=== PATIENT | female | born 1975 | race Two or more races ===

== ENCOUNTER 2023-08-30 20:44 | Inpatient (IN) | payer OTHER, MEDICAID ==
[~2023-08-30] VITALS: Ht 182.9 cm; Wt 75.0 kg
[2023-08-30 21:24] VITALS: PULSE 77; RESP 20; O2SAT 100
[2023-08-30] MEDS: ONDANSETRON HCL 4 MG/2 ML VIAL IV ONE (21:36)
[2023-08-30] MEDS: SODIUM CHLORIDE 0.9% 1,000 ML IV ONE (21:37)
[2023-08-30] MEDS: HYDROmorphone HCL 2 MG/ML VL/or syr IV ONE ×4 (21:37→23:17)
[2023-08-30 21:46] LABS: Basophils # (auto) 0.1 10 ^3/uL (0-0.2); Basophils % (auto) 0.9 % (0.0-2.0); Eosinophils # (auto) 0 10 ^3/uL (0-0.8); Eosinophils % (auto) 0.1 % (0.0-7.0); Hematocrit 37.2 % (36.0-46.0); Hemoglobin 12.4 g/dL (12.2-16.2); Lymphocytes # (auto) 1.1 10 ^3/uL (0.4-5.4); Lymphocytes % (auto) 17.1 % (10.0-50.0); Mean Corpuscular Hemoglobin 29.7 pg (28.0-32.0); Mean Corpuscular Hgb Conc. 33.2 g/dL (32.0-36.0); Mean Corpuscular Volume 89.5 fL (80.0-100.0); Monocytes # (auto) 0.5 10 ^3/uL (0-1.3); Monocytes % (auto) 7.7 % (0.0-12.0); Neutrophils # (auto) 4.7 10 ^3/uL (1.6-8.6); Neutrophils % (auto) 74.2 % (37.0-80.0); Red Blood Cells 4.16 10^6/uL (4.0-5.20); Red Cell Distribution Width 13.4 % (11.8-14.3); White Blood Cell 6.3 10^3/uL (4.4-10.8)
[2023-08-30 22:08] LABS: Alanine Aminotransferase 15 U/L (7-40); Alkaline Phosphatase 23 U/L (46-116); Anion Gap 11 (5-15); Aspartate Aminotransferase 18 U/L (13-40); BUN/Creatinine Ratio 7.4 (10.0-20.0); Blood Urea Nitrogen 8 mg/dL (9-23); Calcium 9.8 mg/dL (8.5-10.1); Carbon Dioxide 22 mmol/L (20-30); Chloride 107 mmol/L (98-107); Glucose 180 mg/dL (74-106); Potassium 3.1 mmol/L (3.5-5.1); Sodium 140 mmol/L (136-145)
[2023-08-30 22:09] LABS: Albumin 4.5 g/dL (3.2-4.8); Bilirubin, Total 0.4 mg/dL (0.2-1.0); Total Protein 6.4 g/dL (5.7-8.2)
[2023-08-30] MEDS: METOCLOPRAMIDE HCL 5MG/ml INJ 2ml VIAL IV ONE (22:30)
[2023-08-30 22:40] LABS: Lipase 27 U/L (12-53)
[2023-08-30] MEDS: IOHEXOL 350 MG/ML 100ML IJ ONE (22:40)
[2023-08-30 22:41] LABS: Lactic Acid w/Reflex 2.6 mmol/L (0.4-2.0)
[2023-08-30] MEDS: cefTRIAXone 1GM/50ML D5W 50 ML IV ONE (23:37)
[2023-08-31] MEDS: metroNIDAZOLE 500MG/100ML 100 ML IV ONE (00:01)
[2023-08-31 00:29] LABS: Urine Bacteria None Seen /hpf (None Seen)
[2023-08-31 00:38] LABS: Urine Blood TRACE /uL (Negative); Urine Clarity Clear (Clear); Urine Color Light-Yellow (Yellow); Urine Protein, UAD TRACE (Negative); Urine Urobilinogen Normal (Negative); Urine WBC 8 /hpf (0 - 5)
[2023-08-31] MEDS: METOCLOPRAMIDE HCL 5MG/ml INJ 2ml VIAL IV ONE (00:42)
[2023-08-31] MEDS: HYDROmorphone HCL 2 MG/ML VL/or syr IV ONE (04:59)
[2023-08-31 07:40] VITALS: PULSE 89; RESP 16; O2SAT 99
[2023-08-31] MEDS ORDERED: ACETAMINOPHEN 325 MG TAB PO PRN (09:30)
[2023-08-31] MEDS ORDERED: SODIUM CHLORIDE 0.9% 1,000 ML IV SCH (09:30)
[2023-08-31] MEDS ORDERED: MORPHINE SULFATE INJ 2 MG/ml SYRG IV PRN (09:30)
[2023-08-31] MEDS: POTASSIUM EFFERVESENT TAB 25 MEQ PO ONE (09:45)
[2023-08-31] MEDS: ENOXAPARIN SOD 40 MG/0.4 ML SYRINGE SC SCH (10:00)
[2023-08-31] MEDS ORDERED: LACTULOSE 20Gm/30ML SOLN PO SCH (10:00)
[2023-08-31] MEDS ORDERED: ENOXAPARIN SOD 40 MG/0.4 ML SYRINGE SC SCH (10:00)
[2023-08-31] MEDS ORDERED: FENO160T PO (10:02)
[2023-08-31] MEDS ORDERED: BUSP10TA31 PO (10:02)
[2023-08-31] MEDS ORDERED: GAB100C PO (10:02)
[2023-08-31] MEDS ORDERED: LISI20TA56 PO (10:02)
[2023-08-31] MEDS ORDERED: LEVO75TA6 PO (10:02)
[2023-08-31] MEDS ORDERED: QUET1TAB11 PO (10:02)
[2023-08-31] MEDS ORDERED: HYDR-4795 PO (10:02)
[2023-08-31] MEDS: GASTROGRAFIN 120 ML SOL ONE (10:02)
[2023-08-31] MEDS ORDERED: VENL37.588 PO (10:02)
[2023-08-31] MEDS: PANTOPRAZOLE 40 MG/10 ML VIAL INJ IV ONE (10:06)
[2023-08-31] MEDS: DOCUSATE SOD 100 MG CAP PO ONE (10:06)
[2023-08-31] MEDS: SODIUM CHLORIDE 0.9% 1,000 ML IV SCH (10:11)
[2023-08-31] MEDS: DOCUSATE SOD 100 MG CAP PO SCH (10:11)
[2023-08-31] MEDS: LACTULOSE 20Gm/30ML SOLN PO ONE (10:11)
[2023-08-31] MEDS: PANTOPRAZOLE 40 MG/10 ML VIAL INJ IV SCH (10:18)
[2023-08-31] MEDS: ONDANSETRON HCL 4 MG/2 ML VIAL IV PRN (10:42)
[2023-08-31] MEDS: metroNIDAZOLE 500MG/100ML 100 ML IV SCH (14:09)
[2023-08-31] MEDS: GABAPENTIN 100 MG CAP PO SCH (14:09)
[2023-08-31] MEDS: busPIRone HCL 10 MG TAB PO SCH (14:09)
[2023-08-31] MEDS: MORPHINE SULFATE INJ 2 MG/ml SYRG IV PRN (15:42)
[2023-08-31 16:00] VITALS: BP 171/94; PULSE 89; RESP 16; O2SAT 100
[2023-08-31 17:00] VITALS: BP 171/94; PULSE 89; RESP 14; TEMP 98.6; O2SAT 99
[2023-08-31 17:45] VITALS: BP 143/86; PULSE 86; RESP 16; O2SAT 99
[2023-08-31 20:00] VITALS: PULSE 114; PULSE 93; RESP 19; O2SAT 96
[2023-08-31 21:00] VITALS: BP 152/88; PULSE 90; RESP 19; TEMP 99.9; O2SAT 97
[2023-08-31] MEDS: ACETAMINOPHEN 325 MG TAB PO PRN (21:52)
[2023-08-31] MEDS: QUEtiapine FUMARATE 25 MG TAB PO SCH (21:55)
[2023-09-01] VITALS (8 sets, daily range): BP systolic 133–154; BP diastolic 76–90; PULSE 84–104; RESP 14–18; TEMP 98.1–98.8; O2SAT 93–98
[2023-09-01] MEDS ORDERED: MELATONIN 5 MG TAB PO ONE (01:45)
[2023-09-01] MEDS: LACTULOSE 20Gm/30ML SOLN PO SCH (02:00)
[2023-09-01 05:59] LABS: Basophils # (auto) 0 10 ^3/uL (0-0.2); Basophils % (auto) 0.3 % (0.0-2.0); Eosinophils # (auto) 0 10 ^3/uL (0-0.8); Eosinophils % (auto) 0.2 % (0.0-7.0); Hematocrit 36.2 % (36.0-46.0); Hemoglobin 12.1 g/dL (12.2-16.2); Lymphocytes # (auto) 0.8 10 ^3/uL (0.4-5.4); Lymphocytes % (auto) 13.3 % (10.0-50.0); Mean Corpuscular Hemoglobin 30.1 pg (28.0-32.0); Mean Corpuscular Hgb Conc. 33.3 g/dL (32.0-36.0); Mean Corpuscular Volume 90.4 fL (80.0-100.0); Monocytes # (auto) 0.6 10 ^3/uL (0-1.3); Monocytes % (auto) 10.4 % (0.0-12.0); Neutrophils # (auto) 4.4 10 ^3/uL (1.6-8.6); Neutrophils % (auto) 75.8 % (37.0-80.0); Red Cell Distribution Width 13.8 % (11.8-14.3); White Blood Cell 5.8 10^3/uL (4.4-10.8)
[2023-09-01] MEDS: LEVOTHYROXINE SODIUM 25 MCG TAB PO SCH (06:11)
[2023-09-01] MEDS: LEVOTHYROXINE SODIUM 50 MCG TAB PO SCH (06:11)
[2023-09-01 06:31] LABS: Alanine Aminotransferase 10 U/L (7-40); Alkaline Phosphatase 24 U/L (46-116); Anion Gap 7 (5-15); BUN/Creatinine Ratio 13.1 (10.0-20.0); Blood Urea Nitrogen 13 mg/dL (9-23); Calcium 8.8 mg/dL (8.5-10.1); Carbon Dioxide 28 mmol/L (20-30); Chloride 106 mmol/L (98-107); Glucose 128 mg/dL (74-106); Potassium 3.5 mmol/L (3.5-5.1); Sodium 141 mmol/L (136-145)
[2023-09-01 06:32] LABS: Albumin 3.9 g/dL (3.2-4.8); Aspartate Aminotransferase 17 U/L (13-40); Bilirubin, Total 0.6 mg/dL (0.2-1.0); Total Protein 5.8 g/dL (5.7-8.2)
[2023-09-01] MEDS: cefTRIAXone 1GM/50ML D5W 50 ML IV SCH (09:44)
[2023-09-01] MEDS ORDERED: PATIENTS OWN MEDICATION (Levothyroxine Sodium 1 TAB) PO SCH (10:00)
[2023-09-01] MEDS: VENLAFAXINE HCL 37.5mg XR cap PO SCH (10:00)
[2023-09-01] MEDS: LISINOPRIL 20 MG TAB PO SCH (10:00)
[2023-09-01] MEDS ORDERED: GASTROGRAFIN 120 ML SOL ONE (10:15)
[2023-09-02] VITALS (7 sets, daily range): BP systolic 129–143; BP diastolic 66–80; PULSE 95–114; RESP 14–18; TEMP 37.1; O2SAT 96–99
[2023-09-02] MEDS ORDERED: MET500T PO (14:09)
== END 2023-09-02 15:55 | disposition home or self-care (01) | DRG 392 ==
LOC: ER 20:44 → TELE 08-31 09:24 → TELE-CENTR 08-31 15:22
PROVIDERS: ADMIT Nurse Practitioner Family; ATTEND Nurse Practitioner Family
DX: K52.9 Noninfective gastroenteritis and colitis, unspecified (principal); K56.609 Unspecified intestinal obstruction, unspecified as to partial versus complete obstruction; E87.6 Hypokalemia; Z90.710 Acquired absence of both cervix and uterus; Z85.43 Personal history of malignant neoplasm of ovary; Z92.21 Personal history of antineoplastic chemotherapy; Z79.891 Long term (current) use of opiate analgesic
CPT/HCPCS: 36415; 74177; 74250; 80053; 81001; 83605; 83690; 85025; 93005; C9113; G0378; J2405; J3490